=== PATIENT | female | born 2000 | race African-American/Black ===

== ENCOUNTER 2020-03-03 20:00 | Emergency (ER) | payer OTHER ==
[2020-03-04 05:49] LABS: SARS-CoV-2 MS2 Positive; SARS-CoV-2 N Gene Negative; SARS-CoV-2 S Gene Negative; SARS-CoV-2 by NAA Not Detected (NotDetected); SARS-CoV-2 orf1ab Negative
== END 2020-03-03 20:35 | disposition home or self-care (01) ==
LOC: ERS 20:00
DX: J06.9 Acute upper respiratory infection, unspecified (principal); Z20.828 Contact with and (suspected) exposure to other viral communicable diseases
CPT/HCPCS: 87635; 99283; U0003

== ENCOUNTER 2020-05-02 12:13 | Emergency (ER) | payer SELFPAY ==
[2020-05-02 15:26] LABS: Pregnancy Test - Urine (BHCG) Negative (Negative); Pregu Control Background? CLEAR/WHITE (CLR/WHITE); Pregu Control Bar Appear? YES (CONTROL BAR)
[2020-05-02 15:28] LABS: Specific Gravity 1.021 (1.002-1.036)
[2020-05-02 15:31] LABS: Bacteria/HPF None Seen HPF (None Seen); Bilirubin Negative (Negative); Blood, Urine Negative (Negative); Clarity Extra Turbid (Clear); Glucose, Urine (Dipstick) Normal (Negative); Ketone, Urine Negative (Negative); Leukocyte 25 Leu/uL (Negative); Nitrite Negative (Negative); Protein, Urine (Dipstick) 10 mg/dL (Neg-Trace); RBC/HPF 0-3 HPF (0-3); Specific Gravity, Urine 1.021 (1.002-1.036); Urobilinogen Normal mg/dL (Less than 2)
[2020-05-02] MEDS ORDERED: cefTRIAXone\\ROCEPHIN 500 MG VIAL ONE (17:39)
[2020-05-02] MEDS ORDERED: Lidocaine 1% PF 5 ML VIAL ONE (17:40)
[2020-05-04 15:55] LABS: Chlam.trachomatis by PCR,Urine DETECTED (NotDetected)
[2020-05-04 15:55] LABS: Chlamydia by PCR DETECTED (NotDetected); GC by PCR DETECTED (NotDetected)
== END 2020-05-02 18:03 | disposition home or self-care (01) ==
LOC: ERS 12:13
DX: N39.0 Urinary tract infection, site not specified (principal); Z20.2 Contact with and (suspected) exposure to infections with a predominantly sexual mode of transmission
CPT/HCPCS: 81003; 81015; 81025; 87480; 87491; 87510; 87591; 87660; 96372; 99284; J0696